=== PATIENT | male | born 1980 | race Caucasian/White ===

== ENCOUNTER 2021-02-04 17:58 | Emergency (ER) | payer SELFPAY ==
[2021-02-04 18:07] VITALS: BP 119/81; PULSE 91; RESP 16; TEMP 37.4; O2SAT 98
--- NOTE | 2021-02-04 18:19 | ED.URI ---
HPI - URI/Sore Throat General Chief Complaint: Upper Respiratory Infection Stated Complaint: Sore Throat Time Seen by Provider: 02/04/21 18:19 Source: patient Mode of arrival: ambulatory Limitations: no limitations History of Present Illness HPI Narrative: Igor Luis is a 40 yo male with upper respiratory symptoms who did a rapid at home that was negative so came here for strep test. Has sore throat body aches muscle aches swollen lymph nodes and goosebumps that started a day ago Related Data Allergies Allergy/AdvReac Type Severity Reaction Status Date / Time No Known Allergies Allergy Mild Verified 07/26/09 22:07 Review of Systems Review of Systems: CONSTITUTIONAL: Denies fever, chills, sweats. Goosebumps, body aches EYES: Denies visual changes, redness, discharge. ENT: Denies rhinorrhea, congestion, has sore throat, otalgia. CARDIOVASCULAR: Denies chest pain, palpitations, edema. RESPIRATORY: Denies dyspnea, wheezing, cough GASTROINTESTINAL: Denies abdominal pain, nausea, vomiting, diarrhea. GENITOURINARY: Denies dysuria, hematuria, abnormal discharge SKIN: Denies rash or itching. NEUROLOGIC: Denies numbness, or focal weakness. PSYCHIATRIC: Denies anxiety or depression. [facility] Past Medical History Medical History No acute medical problems Social History Social History (Updated 02/04/21 @ 18:29 by Spring Rahman CNP) Smoking status: Current every day smoker Tobacco type: e-cigarettes/vaping Alcohol intake: current Comments At time of signature, I agree with nursing past medical, surgical, social and family history. There is no relevant family history pertinent to the presenting complaint. Exam Narrative: GENERAL: This is a well-nourished, well-developed patient, in mild distress. Very anxious HEAD: normocephalic, atraumatic. EYES: . Sclera clear/white. Vision is grossly intact. EARS: External ears normal, auditory canals mild erythema and without drainage, TMs normal without perforation. Hearing grossly intact. NOSE: External nose normal without nasal discharge, nares without redness, no rhinorrhea. THROAT: Mucous membranes moist, posterior pharynx erythema with swelling on the right side NECK: Neck supple, bilateral lymph nodes enlargement CARDIOVASCULAR: Tachycardic rate and rhythm without murmurs, gallops, or rubs. RESPIRATORY: Clear to auscultation. Breath sounds equal bilaterally. No wheezes, rales, or rhonchi. GASTROINTESTINAL: Abdomen soft, non-tender, SKIN: warm, intact with no suspicious lesions or rash, good texture and turgor. NEURO: awake, alert, and oriented to person, place and time. There were no obvious focal neurologic abnormalities. Steady gait EXTREMITIES: Normal range of motion. BACK: Nontender without deformity Course Course Emergency Course: Patient comes here with goosebumps muscle aches fatigue sore throat enlarged lymph nodes-home rapid Covid PCR is negative Strep test was negative Covid PCR done and patient understands he is on quarantine until results are returned Started on Zithromax and prednisone Vital Signs Vital signs: Vital Signs Temperature 99.3 F 02/04/21 18:07 Pulse Rate 91 02/04/21 18:07 Respiratory Rate 16 02/04/21 18:07 Blood Pressure 119/81 02/04/21 18:07 Pulse Oximetry 98 02/04/21 18:07 Temperature 99.3 F 02/04/21 18:07 Pulse Rate 91 02/04/21 18:07 Respiratory Rate 16 02/04/21 18:07 Blood Pressure 119/81 02/04/21 18:07 Pulse Oximetry 98 02/04/21 18:07 MDM - URI/Sore Throat Differential Diagnosis Differential diagnosis: Likely upper respiratory infection, otitis media, sinusitis, viral infection, influenza, pharyngitis and other Lab Data Labs: Strep Screen Presumptive Negative *(Reference Range: Negative)* Critical Care Time Critical Care Time Critical Care Time: No Discharge Plan Discharge
--- NOTE | 2021-02-04 18:55 | PC.NURSE ---
drive thru covid test order faxed.
== END 2021-02-04 18:58 | disposition home or self-care (01) ==
PROVIDERS: Emergency Provider Nurse Practitioner; PCP Family Medicine Adolescent Medicine
DX: J02.9 Acute pharyngitis, unspecified (principal); L04.9 Acute lymphadenitis, unspecified; Z20.822 Contact with and (suspected) exposure to COVID-19; F17.200 Nicotine dependence, unspecified, uncomplicated
CPT/HCPCS: 87081; 87880; 99213; G0463

== ENCOUNTER → 2021-02-05 08:43 | Outpatient (CLI) | payer SELFPAY ==
[2021-02-05 22:45] LABS: SARS-CoV-2 RNA PCR Negative
== END ==
PROVIDERS: PCP Family Medicine Adolescent Medicine; Visit Provider Nurse Practitioner
DX: J02.9 Acute pharyngitis, unspecified (principal); L04.9 Acute lymphadenitis, unspecified; Z20.822 Contact with and (suspected) exposure to COVID-19
CPT/HCPCS: C9803; U0003; U0005

== ENCOUNTER → 2021-06-23 11:23 | Outpatient (CLI) | payer SELFPAY ==
--- NOTE | ~2021-06-23 | XR_ITS ---
EXAMINATION: XR finger 2nd RT min 2V DATE: 06/23/2021 11:39 INDICATION: Right index finger pain. TECHNIQUE: 4 views of right hand second digit were obtained. COMPARISON: None. FINDINGS: Bone alignment is normal. No fracture. There is mild osteoarthritis of second distal interp halangeal joint. IMPRESSION: 1. 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 Reviewed, dictated and finalized at location [facility]
== END ==
PROVIDERS: PCP Physician Assistant; Visit Provider Physician Assistant
DX: M19.041 Primary osteoarthritis, right hand (principal)
CPT/HCPCS: 73140